=== PATIENT | male | born 1980 | race Caucasian/White ===

== ENCOUNTER → 2019-12-20 | Outpatient (CLI) | payer BC ==
--- NOTE | 2019-12-20 16:38 | RAD ---
EXAM: Left shoulder, 3 views. HISTORY: Pain. COMPARISON: None. FINDINGS: 3 views of the shoulder obtained. There is no fracture, dislocation or subluxation. There is no suspicious lytic or sclerotic osseous lesion. IMPRESSION: No acute osseous finding. Electronically signed by: Christy Victoria MD (12/20/2019 4:35 PM) [facility]
== END | disposition home or self-care (01) ==
LOC: RAD 16:12
PROVIDERS: ATTEND Orthopaedic Surgery
DX: M25.512 Pain in left shoulder (principal)
CPT/HCPCS: 73030